=== PATIENT | female | born 1980 | race Caucasian/White ===

== ENCOUNTER 2017-12-17 18:36 | Inpatient (IN) | payer OTHER ==
--- NOTE | 2017-12-17 19:24 | HP ---
General Information - Reason for Visit contractions - General Information Maternal Age: 37 Grav: 4 Para: 3 SAB: 0 IEA: 0 Estimated Due Date: 12/21/17 Determined By: Early Ultrasound Gestational Age in Weeks/Days: 39 w 3d Maternal Blood Type and Rh: A Positive - Results this Serology/RPR Result: Non-Reactive Rubella Result: Immune HBsAg Result: Negative HIV Result: Negative GBS Culture Result: Negative Past Medical History Delivery History: Hx Uncomplicated Vaginal Delivery Past Medical History Comment: varicose veins exercise induced asthma eczema Depression/anxiety--no meds at present Pertinent Past Surgical History: None Pertinent Family History: See Records - Antepartal Records Antepartal Records: Reviewed, Complicated by: - GDM, age 37--normal NIPT Review of Systems Constitutional: Comfortable CV Complaint: No Respiratory: Shortness of Breath: No Gastrointestinal: No Nausea/Vomiting, Normal Bowel Movement Genitourinary: No Leaking Fluid Musculoskeletal: Contractions Neurological: No Headache, No Visual Changes Movement: Normal Exam Allergies/Adverse Reactions: Allergies MS Penicillin G [Penicillin G] Allergy (Verified 12/11/17 02:51) Hives - Measurements Height: 5 ft 3 in Weight: 146 lb Body Mass Index (BMI): 25.8 Pre- Weight: 120 lb - Exam Breast: - - soft, no masses Extremities: Edema - trace edema, varicosities both legs Heart: Normal Rhythm/Heart Sounds HEENT: No Significant Findings Lungs: Clear Bilaterally Reflexes: DTR 2+ Thyroid: No Thyromegaly Targeted Exam Findings Estimated Weight: 7lbs Cervical Exam: 4cm Effacement: 100% Station: -1 Presenting Part: Vertex Membrane Status: Intact Bleeding/Discharge: None EFM Findings - External Monitor Findings Baseline Heart Rate: 140 External Monitor Findings: Accelerations Present, No Pattern of Variable or Late Decelerations, Variability Moderate, Baseline Stable External Monitor Findings Comment: category 1 Contractions: Regular, Moderate, 45-90 Seconds Contraction Frequency: q 2-3 min Assessment/Plan - Assessment in labor. Hx rapid labor - Obstetrical Risk Factors Obstetrical Risk Factors: Gestational Diabetes - diet controlled - Plan Plan: Admit - Anticipate Vaginal Delivery - Date/Time of Admission Date of Admission: 12/17/17 Time of Admission: 19:15
[2017-12-17] MEDS ORDERED: Witch Hazel PAD* JAR TOPICAL PRN (20:56)
[2017-12-17] MEDS ORDERED: Dibucaine 1% 28.35 GM TUBE PR PRN (20:56)
[2017-12-17] MEDS ORDERED: OXYTOCIN* 10 UNITS/ML 1 ML VIAL IM ONE (20:56)
[2017-12-17] MEDS ORDERED: Acetaminophen TAB* 325 MG PO PRN (20:56)
[2017-12-17] MEDS ORDERED: Ibuprofen TAB* 600 MG ONE (21:01)
--- NOTE | 2017-12-17 21:08 | PROCNOTE ---
[facility] OB: Delivery Note - Delivery A Date of : 12/17/17 Time of : 20:29 Sex: Male Score 1 Minute: 9 Score 5 Minutes: 9 Gestational Age in Weeks and Days at Delivery: 39 Weeks and 3 Days Delivery Method: Spontaneous Vaginal Labor: Spontaneous Amniotic Fluid: Clear Estimated Blood Loss: 200 Anesthesia/Analgesia: None - Perineum Perineal Injury: None/Intact - Additional Delivery Notes Additional Delivery Notes: pt uncomfortable with urge to push, fully dilated at 2024 AROM clear fluid at 2025 LMC 2028, OA, over intact perineum. pink, vigorous. Placenta slime, intact at 2033 FF with massage, pitocin 10 u Im at 2034. EBL 200cc. Mother and baby in good condition
[2017-12-17] MEDS ORDERED: OXYTOCIN* 10 UNITS/ML 1 ML VIAL ONE (21:15)
[2017-12-18] MEDS: Docusate CAP* 100 MG PO SCH ×4 (00:14→20:39)
[2017-12-18] MEDS: Ibuprofen TAB* 600 MG PO PRN ×4 (03:05→20:40)
[2017-12-18 08:31] LABS: Hematocrit 37 % (35-47); Hemoglobin 12.7 g/dl (12.0-16.0); Mean Corpuscular HGB Conc 34 g/dl (31-36); Mean Corpuscular Hemoglobin 30 pg (27-31); Mean Corpuscular Volume 89 fL (80-97); Mean Platelet Volume 9.6 um3 (7.4-10.4); Platelet Count 150 10^3/ul (150-450); Red Blood Count 4.17 10^6/ul (4.00-5.40); Red Cell Distribution Width 15 % (10.5-15); White Blood Count 7.1 10^3/ul (3.5-10.8)
[2017-12-18] MEDS ORDERED: Ferrous Gluconate TAB* 324 MG TAB PO SCH (09:00)
[2017-12-19] MEDS: Ibuprofen TAB* 600 MG PO PRN ×2 (04:58→11:34)
[2017-12-19 08:11] VITALS: BP 120/73
[2017-12-19] MEDS: Docusate CAP* 100 MG PO SCH (09:43)
== END 2017-12-19 11:45 | disposition home or self-care (01) | DRG 775 ==
LOC: MCHOBOUT 18:36 → MCHOB 19:08
PROVIDERS: ADMIT Midwife; ATTEND Midwife
PROC: 10E0XZZ Delivery of Products of Conception, External Approach (ICD-10-PCS; principal; 2017-12-17)
PROC: 4A1HXCZ Monitoring of Products of Conception, Cardiac Rate, External Approach (ICD-10-PCS; 2017-12-17)
PROC: 10907ZC Drainage of Amniotic Fluid, Therapeutic from Products of Conception, Via Natural or Artificial Opening (ICD-10-PCS; 2017-12-17)
DX: O24.420 Gestational diabetes mellitus in childbirth, diet controlled (principal); Z37.0 Single live birth; Z88.0 Allergy status to penicillin; Z3A.39 39 weeks gestation of pregnancy; Z23 Encounter for immunization
CPT/HCPCS: 36415; 85027; 90686; A9270-GY; J2590